=== PATIENT | male | born 1970 | race Caucasian/White ===

== ENCOUNTER 2017-11-02 11:42 | Inpatient (IN) | payer MEDICAID ==
[~2017-11-02] VITALS: Ht 175.3 cm; Wt 71.8 kg
[2017-11-02 15:06] LABS: BASOPHIL % 0.2 % (0-2); PLATELET COUNT 308 x10^3mcL (130-400); RED CELL DISTRIBUTION WIDTH 13.3 % (11.5-14.5)
[2017-11-02 15:09] LABS: CARBON DIOXIDE 30.2 mmol/L (21-32); CHLORIDE SERUM 97 mmol/L (98-107); CREATININE SERUM 0.9 mg/dL (0.7-1.3); GFR1 > 60 mL/min; GLUCOSE SERUM 365 mg/dL (74-106); POTASSIUM SERUM 4.2 mmol/L (3.5-5.1); SODIUM SERUM 131 mmol/L (136-145)
[2017-11-02 15:15] LABS: ALKALINE PHOSPHATASE 98 U/L (46-116); ALT/SGPT 16 U/L (16-63); AST/SGOT 7 U/L (15-37); BILIRUBIN TOTAL 0.37 mg/dL (0.20-1.00); C REACTIVE PROTEIN 8.9 mg/dL (<=0.9); TOTAL PROTEIN, SERUM 7.4 g/dL (6.4-8.2)
[2017-11-02 15:16] LABS: ALBUMIN 2.9 g/dL (3.4-5.0)
[2017-11-02 16:48] LABS: ERYTHROCYTE SED RATE 46 mm/hr (0-15)
[2017-11-02 17:51] VITALS: BP 163/105
[2017-11-02] MEDS ORDERED: METFORMIN HYDR500 M1 PO (19:27)
[2017-11-02 20:33] VITALS: BP 166/110
[2017-11-02 22:13] LABS: microscopic required? NO
[2017-11-02 22:24] LABS: urine erythrocyte NEGATIVE (NEGATIVE)
[2017-11-02 22:51] LABS: AMPHETAMINE QUAL UR POSITIVE (See below)
[2017-11-03 05:37] VITALS: BP 149/96
[2017-11-03 05:41] LABS: BASOPHIL % 0.4 % (0-2); PLATELET COUNT 301 x10^3mcL (130-400); RED CELL DISTRIBUTION WIDTH 13.7 % (11.5-14.5)
[2017-11-03 05:54] LABS: CALCIUM 7.9 mg/dL (8.5-10.1); CHLORIDE SERUM 103 mmol/L (98-107); CREATININE SERUM 0.7 mg/dL (0.7-1.3); GFR1 > 60 mL/min; GLUCOSE SERUM 167 mg/dL (74-106); MAGNESIUM 1.7 mg/dL (1.8-2.4); PHOSPHOROUS 3.6 mg/dL (2.5-4.9); POTASSIUM SERUM 3.8 mmol/L (3.5-5.1); SODIUM SERUM 137 mmol/L (136-145)
[2017-11-03 09:59] VITALS: BP 160/101
[2017-11-03 17:39] VITALS: BP 146/88
[2017-11-03 21:32] VITALS: BP 161/98
[2017-11-04 05:49] VITALS: BP 168/111
[2017-11-04 06:28] LABS: BASOPHIL % 0.4 % (0-2); PLATELET COUNT 307 x10^3mcL (130-400); RED CELL DISTRIBUTION WIDTH 13.3 % (11.5-14.5)
[2017-11-04 06:43] LABS: CALCIUM 8.1 mg/dL (8.5-10.1); CARBON DIOXIDE 28.2 mmol/L (21-32); CHLORIDE SERUM 101 mmol/L (98-107); CREATININE SERUM 0.8 mg/dL (0.7-1.3); GFR1 > 60 mL/min; GLUCOSE SERUM 222 mg/dL (74-106); MAGNESIUM 1.7 mg/dL (1.8-2.4); PHOSPHOROUS 3.5 mg/dL (2.5-4.9); SODIUM SERUM 135 mmol/L (136-145)
[2017-11-04 08:57] VITALS: BP 153/97
[2017-11-04 13:00] VITALS: Ht 175.3 cm; Wt 71.8 kg
[2017-11-04 17:37] VITALS: BP 179/116
[2017-11-04 20:34] VITALS: BP 161/109
[2017-11-04 23:28] VITALS: BP 156/88
[2017-11-05 05:57] VITALS: BP 164/102
[2017-11-05 06:53] LABS: BASOPHIL % 0.4 % (0-2); PLATELET COUNT 347 x10^3mcL (130-400); RED CELL DISTRIBUTION WIDTH 13.9 % (11.5-14.5)
[2017-11-05 06:58] LABS: ALKALINE PHOSPHATASE 76 U/L (46-116); ALT/SGPT 17 U/L (16-63); AMYLASE 100 U/L (25-115); AST/SGOT 7 U/L (15-37); BILIRUBIN TOTAL 0.29 mg/dL (0.20-1.00); CALCIUM 8.9 mg/dL (8.5-10.1); CARBON DIOXIDE 27.9 mmol/L (21-32); CHLORIDE SERUM 99 mmol/L (98-107); CREATININE SERUM 1.1 mg/dL (0.7-1.3); GFR1 > 60 mL/min; GLUCOSE SERUM 285 mg/dL (74-106); LIPASE 319 IU/L (73-393); MAGNESIUM 1.7 mg/dL (1.8-2.4); PHOSPHOROUS 4.1 mg/dL (2.5-4.9); POTASSIUM SERUM 4.4 mmol/L (3.5-5.1); SODIUM SERUM 134 mmol/L (136-145); TOTAL PROTEIN, SERUM 7.2 g/dL (6.4-8.2)
[2017-11-05 06:59] LABS: ALBUMIN 2.7 g/dL (3.4-5.0)
[2017-11-05] MEDS ORDERED: BACTRIM DS1 TAB PO (07:23)
[2017-11-05] MEDS ORDERED: METOPROLOL SUCC50 M2 PO (07:23)
[2017-11-05] MEDS ORDERED: ZES10 PO ×2 (07:24→09:33)
[2017-11-05] MEDS ORDERED: HYDROCHLOROTHIA25 MG PO ×2 (07:24→09:33)
[2017-11-05] MEDS ORDERED: LAC PO (07:25)
[2017-11-05 07:58] VITALS: BP 176/111
[2017-11-05] MEDS ORDERED: NOR5 PO (09:33)
[2017-11-05 09:44] VITALS: BP 194/102
[2017-11-05 11:07] VITALS: BP 155/91
== END 2017-11-05 12:51 | disposition home or self-care (01) | DRG 383 ==
LOC: ED 11:42 → MU 14:37 → DU 11-04 19:46
PROVIDERS: General Practice; Specialist
PROC: 0X9J0ZZ Drainage of Right Hand, Open Approach (ICD-10-PCS; principal; 2017-11-02)
DX: L03.113 Cellulitis of right upper limb (principal); G92 Toxic encephalopathy; E11.65 Type 2 diabetes mellitus with hyperglycemia; F15.20 Other stimulant dependence, uncomplicated; L02.512 Cutaneous abscess of left hand; B95.62 Methicillin resistant Staphylococcus aureus infection as the cause of diseases classified elsewhere; T43.621A Poisoning by amphetamines, accidental (unintentional), initial encounter; I16.0 Hypertensive urgency; Z68.24 Body mass index [BMI] 24.0-24.9, adult; Z16.24 Resistance to multiple antibiotics; Z79.84 Long term (current) use of oral hypoglycemic drugs; Y92.009 Unspecified place in unspecified non-institutional (private) residence as the place of occurrence of the external cause
CPT/HCPCS: 36600; J2001; J2543; J3490; J7030; Q0092

== ENCOUNTER 2017-11-20 07:30 | Emergency (ER) | payer MEDICAID ==
[~2017-11-20] VITALS: Ht 175.3 cm; Wt 79.4 kg
[~2017-11-20 07:30] MED LIST: BACTRIM DS1 TAB PO; HYDROCHLOROTHIA25 MG PO; LAC PO; METFORMIN HYDR500 M1 PO; METOPROLOL SUCC50 M2 PO; NOR5 PO; ZES10 PO
[2017-11-20 07:41] VITALS: Ht 175.3 cm; Wt 79.4 kg
[2017-11-20 08:57] VITALS: BP 169/117
== END 2017-11-20 08:57 | disposition home or self-care (01) ==
LOC: ED 07:30
DX: L02.413 Cutaneous abscess of right upper limb (principal); I10 Essential (primary) hypertension; E11.9 Type 2 diabetes mellitus without complications

== ENCOUNTER 2018-01-22 04:52 | Emergency (ER) | payer MEDICAID ==
[~2018-01-22] VITALS: Ht 175.3 cm; Wt 81.4 kg
[2018-01-22 04:56] VITALS: BP 144/103; Ht 175.3 cm; Wt 81.4 kg
== END 2018-01-22 05:27 | disposition home or self-care (01) ==
LOC: ED 04:52
DX: L25.9 Unspecified contact dermatitis, unspecified cause (principal); I10 Essential (primary) hypertension; E11.9 Type 2 diabetes mellitus without complications